=== PATIENT | female | born 1980 | race Caucasian/White ===

== ENCOUNTER 2018-12-23 21:56 | Emergency (ER) | payer OTHER ==
[2018-12-23] MEDS: predniSONE 20 MG TAB PO (22:26)
[2018-12-23] MEDS: DIPHENHYDRAMINE 50 MG CAP PO (22:29)
[2018-12-23] MEDS: PREDNISOLONE ACET 0.12% 5 ML OPH RIGHT EYE (22:38)
== END 2018-12-23 23:31 | disposition home or self-care (01) ==
LOC: FTE 21:56
DX: H11.422 Conjunctival edema, left eye (principal)
CPT/HCPCS: 99283; J7512